=== PATIENT | female | born 1955 | race Caucasian/White ===

== ENCOUNTER → 2019-05-05 | Day surgery (SDC) | payer BC ==
[~2019-05-05] MED LIST: Lactated Ringers 1,000 ML IV SCH; Propofol 200 MG/20 ML SDV IV ONE
[2019-05-05 09:24] VITALS: BP 151/89; PULSE 72
--- NOTE | 2019-05-05 11:25 | OR ---
DATE OF OPERATION: 05/05/2019 PREOPERATIVE DIAGNOSIS: HISTORY OF POLYPS. POSTOPERATIVE DIAGNOSIS: HISTORY OF POLYPS. SURGEON: Jaert Faye MD PROCEDURE: FULL-LENGTH COLONOSCOPY WITH FORCEPS POLYP REMOVAL X6. ANESTHESIA: MAC. COMPLICATIONS: None. SPECIMEN: Six flat sessile polyps all less than 0.5 cm. See report. FINDINGS: 1. Full-length colonoscopy. 2. [id number] distal sigmoid and rectosigmoid diverticulosis. 3. Sessile polyps x6, see report. RECOMMENDATIONS: Followup colonoscopy in 5 years. INDICATIONS: The patient has a prior history of polyps removed. She was seen for routine surveillance. DESCRIPTION OF PROCEDURE: The patient was prepped and draped, placed in the left lateral decubitus position. A lubricated Olympus colonoscope was inserted and with ease advanced to the cecum. Direct visualization of the ileocecal valve and appendiceal orifice was accomplished. The bowel prep was fine. Upon withdrawal of the scope, the cecum and ascending colon appeared benign. Right at the hepatic flexure, the patient had a small flat sessile polyp, probably 2 to 3 mm, removed in its entirety with a forceps biopsy x1. The rest of the transverse colon appeared benign. At the splenic flexure, there were again 2 small sessile polyps, each removed with a forceps biopsy x2 in their entirety. The rest of the descending colon was unremarkable. In the distal sigmoid colon, the patient had a 4th small sessile polyp removed with a forceps biopsy x1. There were scattered diverticula in the [id number] sigmoid and into the rectosigmoid junction, [id number] in severity. The rectal vault itself had another small flat sessile polyp in its most proximal portion also removed. The largest of all 6 polyps was more in the distal rectal vault removed with 3 forceps biopsies in its entirety. Retroflexion showed no perianal lesions. Air was suctioned, scope removed without complication. BRADLEY/RHETT /[id number]
== END ==
LOC: CC.SDS 06:59
PROVIDERS: ATTEND Family Medicine
DX: Z12.11 Encounter for screening for malignant neoplasm of colon (principal); D12.3 Benign neoplasm of transverse colon; K63.5 Polyp of colon; K62.1 Rectal polyp; K57.30 Diverticulosis of large intestine without perforation or abscess without bleeding; I10 Essential (primary) hypertension; J44.9 Chronic obstructive pulmonary disease, unspecified; Z88.0 Allergy status to penicillin; Z88.8 Allergy status to other drugs, medicaments and biological substances; Z86.010 Personal history of colon polyps; Z87.891 Personal history of nicotine dependence; Z79.899 Other long term (current) drug therapy
CPT/HCPCS: J2704; J7120

== ENCOUNTER 2020-01-20 09:30 | Emergency (ER) | payer BC, OTHER ==
[2020-01-20] MEDS: Sodium Chloride 0.9% 1,000 ML IV ONE (09:44)
[2020-01-20] MEDS: Albuterol/Ipratropium 3.0-0.5 MG/3 ML Neb Soln NEB ONE (09:45)
[2020-01-20] MEDS: Dexamethasone 4 MG/ML SDV IVPUSH ONE (09:48)
[2020-01-20] MEDS: Sodium Chloride 0.9% 1,000 ML ONE (09:50)
[2020-01-20] MEDS: Albuterol/Ipratropium 3.0-0.5 MG/3 ML Neb Soln ONE (09:51)
[2020-01-20] MEDS: cefTRIAXone 1 GM Vial ONE (09:56)
[2020-01-20] MEDS: Azithromycin 500 MG Vial ONE (09:56)
[2020-01-20 10:05] LABS: CHLORIDE,CL 97 mEq/L (98-106); SODIUM,NA 135 mEq/L (136-145)
[2020-01-20] MEDS: Azithromycin 500 MG in Sodium Chloride 0.9% 250 ML IV STA (10:08)
[2020-01-20] MEDS: cefTRIAXone 1 GM Vial IVPUSH ONE (10:08)
[2020-01-20] MEDS: Ondansetron 4 MG/2 ML SDV IVPUSH STA (10:15)
[2020-01-20] MEDS: Diltiazem 25 MG/5 ML SDV IVPUSH ONE (10:19)
[2020-01-20] MEDS: Ondansetron 4 MG/2 ML SDV ONE (10:22)
[2020-01-20] MEDS: Diltiazem 100 MG in Sodium Chloride 0.9% 100 ML IV SCH (10:34)
[2020-01-20] MEDS: Potassium Chloride 10 MEQ in Premix Bag 1 BAG IV ONE (10:38)
[2020-01-20 10:46] VITALS: BP 124/86; PULSE 93
[2020-01-20] MEDS: Enoxaparin 80 MG/0.8 ML Syringe SUBCUT STA (10:52)
--- NOTE | 2020-01-20 11:42 | EDM.PDOC ---
ED HPI GENERAL MEDICAL PROBLEM - General Chief Complaint: General Stated Complaint: SOB Time Seen by Provider: 01/20/20 09:30 Source of Information: Reports: Patient History Limitations: Reports: No Limitations - History of Present Illness INITIAL COMMENTS - FREE TEXT/NARRATIVE: This patient is a 64 year old female that presents to the ER via in private vehicle. 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 Her was tested positive for COVID and she has been around penitentiary patients who also tested positive. Patient reports that one week ago on Wednesday she started feeling generally weak and congested. She was tested on Wednesday01/13/2020 and got results back Wednesday that were positive. She reports then on Wednesday she very weak generally. She was on Wednesday01/15/20 and prescribed z-olamide per patient. She reports yesterday she was feeling more weak and not feeling well at all so she came in and got fluids. She reports she did not want to stay in hospital yesterday so went home. Patient reports that last night she felt like her heart started racing, she felt much worse, couldnt eat or drink, congestion, cough, shortness of breath. When patient arrived in EMS garage, took 2 staff members to get her out of truck and into exam room. She was very weak and could not stand on her own. Onset Date: 01/13/20 Duration: Week(s): (1) Location: Reports: Chest Severity: Moderate Improves with: Reports: None Worsens with: Reports: None Associated Symptoms: Reports: Cough, cough w sputum, Fever/Chills, Headaches, Loss of Appetite, Malaise, Nausea/Vomiting, Shortness of Breath, Weakness. 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: Other Medication(s) (inhaler) Generalized Pain Score (Numeric/FACES): 5 - Related Data Allergies Allergy/AdvReac Type Severity Reaction Status Date / Time Penicillins Allergy Hives Verified 01/19/20 12:05 prednisone Allergy Difficulty Verified 01/19/20 12:05 Breathing Home Meds: Home Meds Budesonide/Formoterol [Symbicort 160-4.5 MCG] 2 puff IH BID 01/04/14 [History] Tiotropium [Spiriva] 18 mcg INH DAILY 01/04/14 [History] Roflumilast [Daliresp] 500 mcg PO DAILY 03/08/18 [History] Metoprolol Tartrate [Lopressor] 50 mg PO DAILY 01/19/20 [History] Past Medical History Cardiovascular History: Reports: Hypertension Respiratory History: Reports: COPD Social & Family History - Tobacco Use Smoking Status *Q: Former Smoker Used Tobacco, but Quit: Yes Month/Year Tobacco Last Used: 6 years ED ROS GENERAL - Review of Systems Review Of Systems: See Below Constitutional: Reports: Fever, Chills, Malaise, Weakness, Fatigue, Decreased Appetite HEENT: Reports: Rhinitis, Sinus Problem Respiratory: Reports: Shortness of Breath, Wheezing, Pleuritic Chest Pain, Cough, Sputum Cardiovascular: Reports: Lightheadedness, Palpitations, Other (near syncope) GI/Abdominal: Reports: Decreased Appetite, Nausea. Denies: Abdominal Pain, Vomiting : Reports: No Symptoms Musculoskeletal: Reports: Muscle Pain Skin: Reports: No Symptoms Neurological: Reports: Dizziness, Headache Psychiatric: Reports: No Symptoms Hematologic/Lymphatic: Reports: No Symptoms Immunologic: Reports: No Symptoms ED EXAM, GENERAL - Physical Exam Exam: See Below Exam Limited By: No Limitations General Appearance: Alert, Mild Distress Eye Exam: Bilateral Eye: Normal Inspection, PERRL Ears: Normal External Exam, Hearing Grossly Normal Ear Exam: Bilateral Ear: Auricle Normal Nose: Normal Inspection (while mask came down below nose), Normal Mucosa, No Blood Head: Atraumatic, Normocephalic Neck: Normal Inspection Respiratory/Chest: No Accessory Muscle Use, Respiratory Distress, Decreased Breath Sounds (mildly throughout, moderate bilateral bases. ). No: Accessory Muscle Use Cardiovascular: Irregularly Irregular (rate 140s) Peripheral Pulses: 2+: Radial (L), Radial (R), Posterior Tibial (L), Posterior Tibial (R), Dorsalis Pedis (L), Dorsalis Pedis (R) GI/Abdominal: Soft, Non-Tender, No Organomegaly Back Exam: Normal Inspection Extremities: Normal Inspection, Normal Range of Motion, Non-Tender, No Pedal Edema, Normal Capillary Refill Neurological: Alert, Oriented, Normal Cognition Psychiatric: Normal Affect, Normal Mood Skin Exam: Warm, Dry, Intact, Normal Color, No Rash Lymphatic: No Adenopathy EKG INTERPRETATION EKG Date: 01/20/20 Time: 10:10 Rhythm: A-Fib Rate (Beats/Min): 129 Comparison: Change From Previous EKG Course - Vital Signs Last Recorded V/S: Last Vital Signs Temp 98.7 F 01/20/20 10:45 Pulse 93 01/20/20 10:45 Resp 14 01/20/20 10:45 BP 124/86 01/20/20 10:45 Pulse Ox 97 01/20/20 10:45 - Orders/Labs/Meds Orders: Active Orders 24 hr Category Date Time Status EKG Documentation Completion [RC] STAT Care 01/20/20 10:10 Active RT Aerosol Therapy [RC] ASDIRECTED Care 01/20/20 09:50 Active Chest 1V Frontal [CR] Stat Exams 01/20/20 Taken CULTURE BLOOD [BC] Stat Lab 01/20/20 09:46 Received Diltiazem [Cardizem] 100 mg Med 01/20/20 10:15 Active Sodium Chloride 0.9% [Normal Saline] 100 ml IV TITRATE Medication Orders Diltiazem HCl 100 mg/ Sodium (Chloride) 100 mls @ 5 mls/hr IV TITRATE DWAYNE; Protocol Last Admin: 01/20/20 10:34 Dose: 5 mg/hr, 5 mls/hr Documented by: HARSH Labs: Laboratory Tests 01/20/20 01/20/20 01/20/20 Range/Units 09:45 09:46 09:46 WBC 6.3 (5.0-10.0) 10^3/uL RBC 4.98 (4.00-5.50) 10^6/uL Hgb 15.0 (12.0-16.0) g/dL Hct 42.7 (37.0-47.0) % MCV 85.7 (82.0-94.0) fL MCH 30.1 (27.0-32.0) pg MCHC 35.1 (33.0-38.0) g/dL RDW Coeff of Moe 13.9 (11.0-15.0) % Plt Count 180 (150-400) 10^3/uL Neut % (Auto) 60.6 (35-85) % Lymph % (Auto) 24.2 (10-55) % Collin % (Auto) 15.0 (0-16) % Eos % (Auto) 0.2 (0-5) % Baso % (Auto) 0 (0-3) % Neut # (Auto) 3.84 (1.80-7.00) 10^3/uL Lymph # (Auto) 1.53 (1.00-4.80) 10^3/uL Collin # (Auto) 0.95 H (0.00-0.80) 10^3/uL Eos # (Auto) 0.01 (0.00-0.45) 10^3/uL Baso # (Auto) 0.00 10^3/uL D-Dimer, Quantitative 0.33 (0.00-0.50) Sodium 135 L (136-145) mEq/L Potassium 2.9 L* (3.5-5.0) mEq/L Chloride 97 L (98-106) mEq/L Carbon Dioxide 25 (21-32) mmol/L BUN 15 (7-18) mg/dL Creatinine 0.9 (0.6-1.0) mg/dL Est Cr Clr Drug Dosing 58.32 mL/min Estimated GFR (MDRD) > 60 (>=60) mL/min Glucose 113 H (75-99) mg/dL Lactic Acid (0.4-2.0) mmol/L Calcium 8.7 (8.4-10.1) mg/dL Total Bilirubin 0.4 (0.0-1.0) mg/dL AST 28 (15-37) U/L ALT 39 (12-78) U/L Alkaline Phosphatase 60 (46-116) U/L C-Reactive Protein 1.9 H (0.2-0.8) mg/dL Total Protein 7.2 (6.4-8.2) g/dL Albumin 3.4 (3.4-5.0) g/dL Lipase 189 (73-393) U/L 01/20/20 Range/Units 09:46 WBC (5.0-10.0) 10^3/uL RBC (4.00-5.50) 10^6/uL Hgb (12.0-16.0) g/dL Hct (37.0-47.0) % MCV (82.0-94.0) fL MCH (27.0-32.0) pg MCHC (33.0-38.0) g/dL RDW Coeff of Moe (11.0-15.0) % Plt Count (150-400) 10^3/uL Neut % (Auto) (35-85) % Lymph % (Auto) (10-55) % Collin % (Auto) (0-16) % Eos % (Auto) (0-5) % Baso % (Auto) (0-3) % Neut # (Auto) (1.80-7.00) 10^3/uL Lymph # (Auto) (1.00-4.80) 10^3/uL Collin # (Auto) (0.00-0.80) 10^3/uL Eos # (Auto) (0.00-0.45) 10^3/uL Baso # (Auto) 10^3/uL D-Dimer, Quantitative (0.00-0.50) Sodium (136-145) mEq/L Potassium (3.5-5.0) mEq/L Chloride (98-106) mEq/L Carbon Dioxide (21-32) mmol/L BUN (7-18) mg/dL Creatinine (0.6-1.0) mg/dL Est Cr Clr Drug Dosing mL/min Estimated GFR (MDRD) (>=60) mL/min Glucose (75-99) mg/dL Lactic Acid 1.4 (0.4-2.0) mmol/L Calcium (8.4-10.1) mg/dL Total Bilirubin (0.0-1.0) mg/dL AST (15-37) U/L ALT (12-78) U/L Alkaline Phosphatase (46-116) U/L C-Reactive Protein (0.2-0.8) mg/dL Total Protein (6.4-8.2) g/dL Albumin (3.4-5.0) g/dL Lipase (73-393) U/L Meds: Medications Generic Name Dose Route Start Last Admin Trade Name Freq PRN Reason Stop Dose Admin Diltiazem HCl 100 mg/ Sodium 100 mls @ 5 mls/hr 01/20/20 10:15 01/20/20 10:34 Chloride IV 5 mg/hr TITRATE DWAYNE 5 mls/hr Administration Protocol 5 MG/HR Discontinued Medications Generic Name Dose Route Start Last Admin Trade Name Freq PRN Reason Stop Dose Admin Albuterol/Ipratropium Confirm 01/20/20 09:25 01/20/20 09:51 Duoneb 3.0-0.5 Mg/3 Ml Administered 01/20/20 09:26 Not Given Dose 3 ml .ROUTE .STK-MED ONE Albuterol/Ipratropium 3 ml 01/20/20 09:45 01/20/20 09:45 Duoneb 3.0-0.5 Mg/3 Ml NEB 01/20/20 09:46 3 ml ONETIME ONE Administration Azithromycin Confirm 01/20/20 09:34 01/20/20 09:56 Zithromax Administered 01/20/20 09:35 Not Given Dose 500 mg .ROUTE .STK-MED ONE Ceftriaxone Sodium Confirm 01/20/20 09:34 01/20/20 09:56 Rocephin Administered 01/20/20 09:35 Not Given Dose 1 gm .ROUTE .STK-MED ONE Ceftriaxone Sodium 1 gm 01/20/20 10:15 01/20/20 10:08 Rocephin IVPUSH 01/20/20 10:16 1 gm ONETIME ONE Administration Dexamethasone 6 mg 01/20/20 09:25 01/20/20 09:48 Dexamethasone IVPUSH 01/20/20 09:26 6 mg ONETIME ONE Administration Diltiazem HCl 10 mg 01/20/20 10:12 01/20/20 10:19 Diltiazem IVPUSH 01/20/20 10:13 10 mg ONETIME ONE Administration Enoxaparin Sodium 69 mg 01/20/20 10:39 01/20/20 10:52 Lovenox SUBCUT 01/20/20 10:40 69 mg STAT STA Administration Sodium Chloride Confirm 01/20/20 09:20 01/20/20 09:50 Normal Saline Administered 01/20/20 09:21 Not Given Dose 1,000 mls @ as directed .ROUTE .STK-MED ONE Sodium Chloride 1,000 mls @ 999 mls/hr 01/20/20 09:44 01/20/20 09:44 Normal Saline IV 01/20/20 10:44 999 mls/hr .BOLUS ONE Administration Azithromycin 500 mg/ Sodium 250 mls @ 250 mls/hr 01/20/20 10:01 01/20/20 10:08 Chloride IV 01/20/20 11:00 250 mls/hr NOW STA Administration Potassium Chloride 10 meq/ 100 mls @ 100 mls/hr 01/20/20 10:27 01/20/20 10:51 Premix IV 01/20/20 11:26 25 mls/hr ONETIME ONE Infusion Ondansetron HCl 4 mg 01/20/20 10:14 01/20/20 10:15 Zofran IVPUSH 01/20/20 10:15 4 mg STAT STA Administration Ondansetron HCl Confirm 01/20/20 09:57 01/20/20 10:22 Zofran Administered 01/20/20 09:58 Not Given Dose 4 mg .ROUTE .[facility] ONE - Radiology Interpretation Free Text/Narrative:: CXR: Bilateral base infiltrates - Re-Assessments/Exams Free Text/Narrative Re-Assessment/Exam: 01/20/20 11:47 Patient being transferred to [facility] [place]. Accepting Dr. Jaime. Patient being transferred via helicopter. Risk vs Benefits explained to patient. She has accepted transfer. Risk of transfer are helicopter crash, , worsening of condition, intubation. The risk of staying in [place] is , worsening of condition, no covid unit, no icu, no bipap, no specialist. The benefits of transfer are icu, covid unit, general merchandise manager, bipap machine, higher level of care. The benefits of staying in [place] are close to home. 01/20/20 11:58 Please see attached [facility] note. They assisted with patient care. Patient reported at transfer she was feeling a little better. After breathing treatment patient is breathing better, her oxygen is 98% on 4L NC. Departure - Departure Time of Disposition: 12:03 Disposition: DC/[facility]fer to [facility] 02 Condition: Critical Clinical Impression: COVID-19, Respiratory distress, Hypokalemia Atrial fibrillation Qualifiers: Atrial fibrillation type: unspecified Qualified Code(s): I48.91 - Unspecified atrial fibrillation Pneumonia Qualifiers: Pneumonia type: due to unspecified organism Laterality: bilateral Lung location: lower lobe of lung Qualified Code(s): J18.9 - Pneumonia, unspecified organism - Discharge Information *PRESCRIPTION DRUG MONITORING PROGRAM REVIEWED*: Not Applicable *COPY OF PRESCRIPTION DRUG MONITORING REPORT IN PATIENT NICK: Not Applicable Forms: ED Department Discharge Sepsis Event Note (ED) - Evaluation Sepsis Screening Result: Possible Sepsis Risk - Focused Exam Vital Signs: Vital Signs Temp Pulse Resp BP Pulse Ox 01/20/20 10:45 98.7 F 93 14 124/86 97 01/20/20 10:24 125 H 12 124/86 100 01/20/20 09:40 97 01/20/20 09:35 98.3 F 135 H 20 132/78 92 L - My Orders Last 24 Hours: My Active Orders 01/20/20 Chest 1V Frontal [CR] Stat 01/20/20 09:46 CULTURE BLOOD [BC] Stat 01/20/20 09:50 RT Aerosol Therapy [RC] ASDIRECTED 01/20/20 10:10 EKG Documentation Completion [RC] STAT 01/20/20 10:15 Diltiazem [Cardizem] 100 mg Sodium Chloride 0.9% [Normal Saline] 100 ml IV TITRATE - Assessment/Plan Last 24 Hours: My Active Orders 01/20/20 Chest 1V Frontal [CR] Stat 01/20/20 09:46 CULTURE BLOOD [BC] Stat 01/20/20 09:50 RT Aerosol Therapy [RC] ASDIRECTED 01/20/20 10:10 EKG Documentation Completion [RC] STAT 01/20/20 10:15 Diltiazem [Cardizem] 100 mg Sodium Chloride 0.9% [Normal Saline] 100 ml IV TITRATE Plan: PLEASE SEE RN NOTE FOR PFSH.
== END 2020-01-20 11:12 ==
LOC: CC.ED 09:30
DX: U07.1 COVID-19 (principal); R06.03 Acute respiratory distress; E87.6 Hypokalemia; I48.91 Unspecified atrial fibrillation; J12.89 Other viral pneumonia; J44.9 Chronic obstructive pulmonary disease, unspecified; I10 Essential (primary) hypertension; Z79.899 Other long term (current) drug therapy; Z79.51 Long term (current) use of inhaled steroids; Z88.0 Allergy status to penicillin; Z88.8 Allergy status to other drugs, medicaments and biological substances; Z87.891 Personal history of nicotine dependence
CPT/HCPCS: 71045; 80053; 83605; 83690; 85025; 85379; 86140; 87040; 93005; 94640; 96365; 96368; 96372; 96375; 96376; 99285; J0456; J0696; J1100; J1650; J2405; J3480; J3490; J7030; J7050; J7620-GY

== ENCOUNTER 2021-06-07 09:24 | Emergency (ER) | payer BC, OTHER ==
[2021-06-07] MEDS ORDERED: methylPREDNISolone Sodium Succinate 125 MG/2 ML SDV IVPUSH STA (09:28)
[2021-06-07] MEDS ORDERED: Albuterol/Ipratropium 3.0-0.5 MG/3 ML Neb Soln NEB ONE (09:29)
[2021-06-07] MEDS ORDERED: cefTRIAXone 1 GM Vial IVPUSH SCH (09:30)
--- NOTE | 2021-06-07 09:32 | EDM.PDOC ---
ED HPI GENERAL MEDICAL PROBLEM - General Chief Complaint: General Stated Complaint: SOB Time Seen by Provider: 06/07/21 09:24 Source of Information: Reports: Patient, Family History Limitations: Reports: Respiratory Distress - History of Present Illness INITIAL COMMENTS - FREE TEXT/NARRATIVE: Elida is a 65 year old female who presents to ER with complaints of increased shortness of breath. Started to notice more of a cough on . Yesterday, used her nebs as does not need to do that chronically and had oxygen on last night. This am, noted more of a struggle to breathe. Has felt more achy, chills and weak. Has had a stressful week with her father dying, being with family and the holidays approaching. Not getting as much sleep this week, getting worn down. Does have sinus pressure and hoarseness. Denies nausea/vomiting or diarrhea. Onset: Gradual Duration: Day(s):, Getting Worse Location: Reports: Chest Quality: Reports: Ache Severity: Moderate Improves with: Reports: Rest Worsens with: Reports: Movement Associated Symptoms: Reports: Cough, cough w sputum, Fever/Chills, Malaise, Shortness of Breath, Weakness. 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 Treatments, Oxygen - Related Data Allergies Allergy/AdvReac Type Severity Reaction Status Date / Time Penicillins Allergy Hives Verified 05/26/21 08:49 prednisone Allergy Difficulty Verified 05/26/21 08:49 Breathing Home Meds: Home Meds Budesonide/Formoterol [Symbicort 160-4.5 MCG] 2 puff IH BID 01/04/14 [History] Tiotropium [Spiriva] 18 mcg INH DAILY 01/04/14 [History] Roflumilast [Daliresp] 500 mcg PO DAILY 03/08/18 [History] Metoprolol Tartrate [Lopressor] 50 mg PO DAILY 01/19/20 [History] Past Medical History Cardiovascular History: Reports: Hypertension Respiratory History: Reports: COPD Social & Family History - Tobacco Use Tobacco Use Status *Q: Former Tobacco User ED ROS GENERAL - Review of Systems Review Of Systems: See Below Constitutional: Reports: Chills, Malaise, Weakness, Fatigue. Denies: Fever HEENT: Reports: Rhinitis, Other (hoarse from coughing). Denies: Ear Pain, Throat Pain Respiratory: Reports: Shortness of Breath, Wheezing, Cough Cardiovascular: Reports: No Symptoms Endocrine: Reports: Fatigue GI/Abdominal: Denies: Abdominal Pain, Nausea, Vomiting : Reports: No Symptoms Musculoskeletal: Reports: No Symptoms Skin: Reports: No Symptoms Neurological: Reports: Weakness ED EXAM, GENERAL - Physical Exam Exam: See Below Exam Limited By: Respiratory Distress (oxygen sat 88% on room air on arrival, sitting in tripod position) General Appearance: Alert, WD/WN, Moderate Distress Ears: Normal External Exam, Normal TMs Nose: Normal Inspection, Normal Mucosa, No Blood Throat/Mouth: Normal Inspection, Normal Oropharynx Head: Normocephalic Neck: Normal Inspection, Supple, Non-Tender Respiratory/Chest: Respiratory Distress, Decreased Breath Sounds, Wheezing Cardiovascular: Regular Rate, Rhythm GI/Abdominal: Normal Bowel Sounds, Soft, Non-Tender Extremities: Normal Inspection, No Pedal Edema Neurological: Alert, Oriented Skin Exam: Warm, Dry Course - Orders/Labs/Meds Orders: Active Orders 24 hr Category Date Time Status RT Aerosol Therapy [RC] ASDIRECTED Care 06/07/21 09:29 Active Chest 2V [CR] Stat Exams 06/07/21 09:27 Ordered cefTRIAXone [Rocephin] Med 06/07/21 09:30 Active 1 gm IVPUSH Q24H Isolation [COMM] Routine Oth 06/07/21 09:31 Active Medication Orders Ceftriaxone Sodium (Ceftriaxone 1 Gm Vial) 1 gm IVPUSH Q24H DWAYNE Last Admin: 06/07/21 09:35 Dose: 1 gm Documented by: MYA Labs: Laboratory Tests 06/07/21 06/07/21 06/07/21 Range/Units 09:27 09:46 09:46 WBC 13.2 H (4.0-11.0) 10^3/uL RBC 4.52 (4.00-5.50) x10^6/uL Hgb 13.4 (12.0-16.0) g/dL Hct 41.2 (37.0-47.0) % MCV 91.2 (83.0-97.0) fL MCH 29.6 (27.0-32.0) pg MCHC 32.5 (32.0-36.0) g/dL RDW Coeff of Moe 14.3 (11.0-15.0) % Plt Count 251 (150-400) 10^3/uL Immature Gran % (Auto) 0.3 (0.0-4.9) % Neut % (Auto) 80.9 H (41-71) % Lymph % (Auto) 4.5 L (24-44) % Towner % (Auto) 14.0 H (0-10) % Eos % (Auto) 0.1 (0-6) % Baso % (Auto) 0.2 (0-1) % Neut # (Auto) 10.69 H (1.80-8.00) x10^3/uL Lymph # (Auto) 0.60 (0.60-5.00) 10^3/uL Towner # (Auto) 1.85 H (0.00-1.50) 10^3/uL Eos # (Auto) 0.01 (0.00-1.50) 10^3/uL Baso # (Auto) 0.03 (0.00-0.50) 10^3/uL Immature Gran # (Auto) 0.04 (0.00-0.49) 10^3/uL Sodium 136 (136-145) mEq/L Potassium 3.9 (3.5-5.0) mEq/L Chloride 102 (98-106) mEq/L Carbon Dioxide 26 (21-32) mmol/L BUN 22 H (7-18) mg/dL Creatinine 1.2 H (0.6-1.0) mg/dL Est Cr Clr Drug Dosing TNP Estimated GFR (MDRD) 45 L (>=60) mL/min Glucose 116 H (75-99) mg/dL Calcium 8.6 (8.4-10.1) mg/dL Total Bilirubin 0.4 (0.0-1.0) mg/dL AST 18 (15-37) U/L ALT 24 (12-78) U/L Alkaline Phosphatase 75 (46-116) U/L C-Reactive Protein 8.9 H (0.2-0.8) mg/dL Total Protein 7.3 (6.4-8.2) g/dL Albumin 3.9 (3.4-5.0) g/dL SARS CoV-2 RNA Rapid DAVID Negative (NEGATIVE) Meds: Medications Generic Name Dose Route Start Last Admin Trade Name Freq PRN Reason Stop Dose Admin Ceftriaxone Sodium 1 gm 12/25/21 09:30 06/07/21 09:35 Ceftriaxone 1 Gm Vial IVPUSH 1 gm Q24H DWAYNE Administration Discontinued Medications Generic Name Dose Route Start Last Admin Trade Name Fawn PRN Reason Stop Dose Admin Albuterol/Ipratropium 3 ml 06/07/21 09:29 06/07/21 09:30 Albuterol/Ipratropium 3.0-0.5 Mg/3 Ml Neb Soln NEB 06/07/21 09:30 3 ml ONETIME ONE Administration Methylprednisolone Sodium Succinate 125 mg 06/07/21 09:28 06/07/21 09:32 Methylprednisolone Sodium Succinate 125 Mg/2 Ml Sdv IVPUSH 06/07/21 09:29 125 mg NOW STA Administration - Re-Assessments/Exams Free Text/Narrative Re-Assessment/Exam: 06/07/21 10:04 Patient feeling better after neb treatment, IV meds. 1015-CRP is elevated at 8.9. WBC 13.2. COVID and influenza negative. Suggested admission, patient declines. Does feel she can manage this at home with her nebs and oxygen. Start Ceftin and Medrol dose pack. Return if breathing changes. Departure - Departure Time of Disposition: 10:14 Disposition: Home, Self-Care 01 Condition: Fair Clinical Impression: Pneumonia, COPD exacerbation - Discharge Information *PRESCRIPTION DRUG MONITORING PROGRAM REVIEWED*: No *COPY OF PRESCRIPTION DRUG MONITORING REPORT IN PATIENT NICK: No Instructions: Community-Acquired Pneumonia, Adult, Chronic Obstructive Pulmonary Disease Forms: ED Department Discharge Additional Instructions: 1. Push fluids 2. Nebs every 4 hours and as needed 3. Ceftin 500 mg daily for 10 days 4. Medrol dose pack as directed 5. Oxygen to keep sats greater than 90% 6. Follow or return to ER if breathing worsens or changes occur - My Orders Last 24 Hours: My Active Orders 06/07/21 09:27 Chest 2V [CR] Stat 06/07/21 09:29 RT Aerosol Therapy [RC] ASDIRECTED 06/07/21 09:30 cefTRIAXone [Rocephin] 1 gm IVPUSH Q24H 06/07/21 09:31 Isolation [COMM] Routine - Assessment/Plan Last 24 Hours: My Active Orders 06/07/21 09:27 Chest 2V [CR] Stat 06/07/21 09:29 RT Aerosol Therapy [RC] ASDIRECTED 06/07/21 09:30 cefTRIAXone [Rocephin] 1 gm IVPUSH Q24H 06/07/21 09:31 Isolation [COMM] Routine
[2021-06-07 09:57] LABS: CHLORIDE,CL 102 mEq/L (98-106); SODIUM,NA 136 mEq/L (136-145)
[2021-06-07] MEDS ORDERED: Take Home: Cefuroxime 250 MG Tab, 2 Tab Pack PO ONE (10:21)
[2021-06-07] MEDS ORDERED: Dexamethasone 4 MG Tab ONE (10:58)
[2021-06-07 13:20] VITALS: BP 118/62; PULSE 97
[2021-06-08] MEDS ORDERED: Dexamethasone 4 MG Tab PO SCH (08:00)
== END 2021-06-07 12:15 | disposition home or self-care (01) ==
LOC: CC.ED 09:24
DX: J44.0 Chronic obstructive pulmonary disease with (acute) lower respiratory infection (principal); J18.9 Pneumonia, unspecified organism; J44.1 Chronic obstructive pulmonary disease with (acute) exacerbation; I10 Essential (primary) hypertension; Z20.822 Contact with and (suspected) exposure to COVID-19; Z88.0 Allergy status to penicillin; Z88.8 Allergy status to other drugs, medicaments and biological substances; Z79.899 Other long term (current) drug therapy
CPT/HCPCS: 36415; 71046; 80053; 85025; 86140; 87635; 87804; 94640; 96374; 96375; 99285; A9270; J0696; J2930; J8540; J7620-GY; U0002

== ENCOUNTER 2021-10-07 15:26 | Inpatient (IN) | payer BC, OTHER ==
[2021-10-07] MEDS ORDERED: Ondansetron 4 MG Tab.DIS PO PRN (16:06)
[2021-10-07] MEDS ORDERED: Sodium Chloride 0.9% 10 ML Syringe FLUSH PRN (16:06)
[2021-10-07] MEDS ORDERED: Ondansetron 4 MG/2 ML SDV IV PRN (16:06)
[2021-10-07] MEDS ORDERED: Acetaminophen 325 MG Tab PO PRN (16:06)
[2021-10-07] MEDS ORDERED: Albuterol 8 GM Inhaler INH PRN (16:14)
[2021-10-07] MEDS ORDERED: Furosemide 40 MG Tab PO PRN (16:14)
[2021-10-07] MEDS ORDERED: Dexamethasone 4 MG Tab PO SCH (16:15)
[2021-10-07] MEDS ORDERED: Iopamidol 755 Mg/ML 100 ML Bottle IVPUSH ONE (16:29)
[2021-10-07 16:35] LABS: CHLORIDE,CL 104 mEq/L (98-106); SODIUM,NA 143 mEq/L (136-145)
[2021-10-07] MEDS: Enoxaparin 40 MG/0.4 ML Syringe SUBCUT SCH (17:08)
[2021-10-07] MEDS: Cefuroxime 250 MG Tab PO SCH (17:35)
[2021-10-07] MEDS: Budesonide 0.5 MG/2 ML Neb Susp INH SCH (19:45)
[2021-10-07] MEDS: Zolpidem 5 MG Tab PO SCH (19:45)
[2021-10-07] MEDS: Albuterol 0.083% 2.5 MG/3 ML Neb Soln INH SCH (19:45)
[2021-10-07] MEDS: BUDESONIDE INH SCH (19:53)
[2021-10-07] MEDS: FORMOTEROL FUMARATE INH SCH (19:53)
[2021-10-08] MEDS: Cefuroxime 250 MG Tab PO SCH ×2 (07:27→17:11)
[2021-10-08] MEDS: Enoxaparin 40 MG/0.4 ML Syringe SUBCUT SCH (07:27)
[2021-10-08] MEDS: Aspirin 81 MG Tab.EC PO SCH (07:27)
[2021-10-08] MEDS: Losartan 100 MG Tab PO SCH (07:28)
[2021-10-08] MEDS: Budesonide 0.5 MG/2 ML Neb Susp INH SCH ×2 (07:29→20:51)
[2021-10-08] MEDS: BUDESONIDE INH SCH ×2 (07:29→20:51)
[2021-10-08] MEDS: Albuterol 0.083% 2.5 MG/3 ML Neb Soln INH SCH ×3 (07:29→20:51)
[2021-10-08] MEDS: FORMOTEROL FUMARATE INH SCH ×2 (07:29→20:51)
[2021-10-08] MEDS: ROFLUMILAST PO SCH (07:31)
[2021-10-08] MEDS ORDERED: METHYLPREDNISOLONE 4 MG PO SCH (08:00)
[2021-10-08] MEDS: Tiotropium Inhaler 18 MCG Inhalation Powder Cap Kit of 5 INH SCH (17:10)
[2021-10-08] MEDS: Zolpidem 5 MG Tab PO SCH (20:50)
[2021-10-09] MEDS: Albuterol 0.083% 2.5 MG/3 ML Neb Soln INH SCH (07:43)
[2021-10-09] MEDS: Budesonide 0.5 MG/2 ML Neb Susp INH SCH (07:43)
[2021-10-09] MEDS: ROFLUMILAST PO SCH (07:45)
[2021-10-09] MEDS: Cefuroxime 250 MG Tab PO SCH (07:46)
[2021-10-09] MEDS: Aspirin 81 MG Tab.EC PO SCH (07:46)
[2021-10-09] MEDS: Losartan 100 MG Tab PO SCH (07:47)
[2021-10-09] MEDS: BUDESONIDE INH SCH (07:48)
[2021-10-09] MEDS: FORMOTEROL FUMARATE INH SCH (07:48)
[2021-10-09] MEDS: Enoxaparin 40 MG/0.4 ML Syringe SUBCUT SCH (07:49)
[2021-10-09] MEDS: Tiotropium Inhaler 18 MCG Inhalation Powder Cap Kit of 5 INH SCH (09:33)
[2021-10-09 11:40] VITALS: BP 111/60; PULSE 82
== END 2021-10-09 12:45 | disposition home or self-care (01) | DRG 140 ==
LOC: UNDOADMIN 15:26 → CC.MS 15:26
PROVIDERS: ADMIT Nurse Practitioner Family; ATTEND Nurse Practitioner Family
DX: J44.1 Chronic obstructive pulmonary disease with (acute) exacerbation (principal); Z79.52 Long term (current) use of systemic steroids; Z79.899 Other long term (current) drug therapy; R84.5 Abnormal microbiological findings in specimens from respiratory organs and thorax
CPT/HCPCS: 36415; 71270; 80053; 80202; 85025; 86140; 94640; 94761; A9270-GY; J1650; J3370; J7050; J7509; J7613-GY; Q9967